=== PATIENT | female | born 1970 | race Caucasian/White ===

== ENCOUNTER 2019-09-29 22:34 | Emergency (ER) | payer BC ==
[2019-09-29] MEDS ORDERED: diphenhydrAMINE 50 MG/ML SDV IVPUSH ONE (22:55)
[2019-09-29] MEDS ORDERED: Ondansetron 4 MG/2 ML SDV IV ONE (22:55)
[2019-09-29] MEDS ORDERED: Lactated Ringers 1,000 ML IV ONE (22:55)
[2019-09-29] MEDS ORDERED: Sodium Chloride 0.9% 10 ML Syringe FLUSH PRN (22:55)
--- NOTE | 2019-09-29 23:03 | EDM.PDOC ---
ED HPI GENERAL MEDICAL PROBLEM - General Stated Complaint: right side pain Time Seen by Provider: 09/29/19 22:57 Source of Information: Reports: Patient History Limitations: Reports: No Limitations - History of Present Illness INITIAL COMMENTS - FREE TEXT/NARRATIVE: Patient comes emergency department today with complaints of a rather sudden onset of right sided lower region abdominal pain about 45 minutes prior to arrival. Earlier today the patient was without any complaints whatsoever. Suddenly about 45 minutes ago she developed one loose stool nausea dry heaving vomiting and right lower quadrant pain. No fever no chills. No chest pain or shortness of breath or difficulty breathing. She has not had any body aches or any other malaise throughout the day. No hematuria dysuria or urinary frequency. She has had a hysterectomy in the past otherwise no abdominal surgeries. RLQ abdominal pain Pain Score (Numeric/FACES): 5 - Related Data Allergies Allergy/AdvReac Type Severity Reaction Status Date / Time No Known Allergies Allergy Verified 09/29/19 23:13 Home Meds: Home Meds Exemestane 25 mg PO DAILY 09/29/19 [History] Cefdinir 300 mg PO BID #14 capsule 09/30/19 [Rx] Ondansetron [Ondansetron ODT] 4 mg PO Q6H PRN #12 tab.rapdis 09/30/19 [Rx] ED ROS GENERAL - Review of Systems Review Of Systems: Comprehensive ROS is negative, except as noted in HPI. ED EXAM, GI/ABD - Physical Exam Exam: See Below Exam Limited By: No Limitations General Appearance: Alert, WD/WN, No Apparent Distress Throat/Mouth: Normal Inspection, Normal Lips, Normal Oropharynx Head: Atraumatic, Normocephalic Neck: Normal Inspection, Supple, Non-Tender, Full Range of Motion Respiratory/Chest: No Respiratory Distress, Lungs Clear, Normal Breath Sounds, No Accessory Muscle Use, Chest Non-Tender Cardiovascular: Normal Peripheral Pulses, Regular Rate, Rhythm GI/Abdominal Exam: Soft, Tender (RLQ without guarding or rebound. Negative McBurney's point psoas obturator heel jar. Pain is really more pelvic in nature than abdominal pain by location some tenderness to the suprapubic region as well. ), Abnormal Bowel Sounds (hypoactive bowel sounds.). No: Distended, Guarding, Rigid, Rebound, Hernia Back Exam: Normal Inspection, Full Range of Motion. No: CVA Tenderness (L), CVA Tenderness (R) Extremities: Normal Inspection, Normal Range of Motion, No Pedal Edema Neurological: Alert, Oriented, Normal Cognition, Normal Gait, No Motor/Sensory Deficits Psychiatric: Normal Affect, Normal Mood Skin Exam: Dry, Intact, Normal Color, Cool, Pallor Course - Vital Signs Last Recorded V/S: Last Vital Signs Temp 35.9 C L 09/29/19 22:34 Pulse 63 09/29/19 22:34 Resp 20 09/29/19 22:34 BP 135/77 09/29/19 22:34 Pulse Ox 100 09/29/19 22:34 - Orders/Labs/Meds Orders: Active Orders 24 hr Category Date Time Status CULTURE URINE [RM] Stat Lab 09/29/19 23:25 Received Sodium Chloride 0.9% [Saline Flush] Med 09/29/19 22:55 Active 10 ml FLUSH ASDIRECTED PRN Peripheral IV Insertion Adult [OM.PC] Stat Oth 09/29/19 22:54 Ordered Medication Orders Sodium Chloride (Saline Flush) 10 ml FLUSH ASDIRECTED PRN PRN Reason: Keep Vein Open Labs: Laboratory Tests 09/29/19 09/29/19 09/29/19 Range/Units 23:09 23:09 23:09 WBC 5.7 (4.0-10.0) x10^3/uL RBC 4.46 (4.00-5.50) x10^6/uL Hgb 13.3 (12.0-16.0) g/dL Hct 38.9 (33.0-47.0) % MCV 87.2 (78.0-93.0) fL MCH 29.8 (26.0-32.0) pg MCHC 34.2 (32.0-36.0) g/dL RDW Coeff of Diya 13.0 (10.0-15.0) % Plt Count 292 (130-400) x10^3/uL Neut % (Auto) 51.8 (50.0-80.0) % Lymph % (Auto) 33.7 (25.0-50.0) % Lake % (Auto) 11.5 H (2.0-11.0) % Eos % (Auto) 2.8 (0.0-4.0) % Baso % (Auto) 0.2 (0.2-1.2) % Sodium 144 (136-145) mmol/L Potassium 3.0 L (3.5-5.1) mmol/L Chloride 105 (98-107) mmol/L Carbon Dioxide 26 (21-32) mmol/L Anion Gap 16.0 (10-20) mmol/L BUN 15 (7-18) mg/dL Creatinine 0.9 (0.55-1.02) mg/dL Est Cr Clr Drug Dosing TNP Estimated GFR (MDRD) > 60 Glucose 106 (74-106) mg/dL Lactic Acid 2.4 H* (0.4-2.0) mmol/L Calcium 9.1 (8.5-10.1) mg/dL Corrected Calcium 9.58 (8.5-10.1) mg/dL Total Bilirubin 0.5 (0.2-1.0) mg/dL AST 17 (15-37) U/L ALT 24 (14-59) U/L Alkaline Phosphatase 92 (46-116) U/L C-Reactive Protein 0.5 (<=0.9) mg/dL Total Protein 7.2 (6.4-8.2) g/dL Albumin 3.4 (3.4-5.0) g/dL Globulin 3.8 Albumin/Globulin Ratio 0.89 Urine Color (YELLOW) Urine Appearance (CLEAR) Urine pH (5.0-8.0) Ur Specific Russell Urine Protein (NEGATIVE) mg/dL Urine Glucose (UA) (NEGATIVE) mg/dL Urine Ketones (NEGATIVE) mg/dL Urine Occult Blood (NEGATIVE) Urine Nitrite (NEGATIVE) Urine Bilirubin (NEGATIVE) Urine Urobilinogen (0.2) EU/dL Ur Leukocyte Esterase (NEGATIVE) Urine RBC (NOT SEEN) /HPF Urine WBC (NOT SEEN) /HPF Ur Squamous Epith Cells (NEGATIVE) /HPF Amorphous Sediment Urine Bacteria (NEGATIVE) /HPF Urine Mucus (NEGATIVE) /LPF Urine HCG, Qual (NEGATIVE) 09/29/19 09/29/19 Range/Units 23:25 23:25 WBC (4.0-10.0) x10^3/uL RBC (4.00-5.50) x10^6/uL Hgb (12.0-16.0) g/dL Hct (33.0-47.0) % MCV (78.0-93.0) fL MCH (26.0-32.0) pg MCHC (32.0-36.0) g/dL RDW Coeff of Diya (10.0-15.0) % Plt Count (130-400) x10^3/uL Neut % (Auto) (50.0-80.0) % Lymph % (Auto) (25.0-50.0) % Lake % (Auto) (2.0-11.0) % Eos % (Auto) (0.0-4.0) % Baso % (Auto) (0.2-1.2) % Sodium (136-145) mmol/L Potassium (3.5-5.1) mmol/L Chloride (98-107) mmol/L Carbon Dioxide (21-32) mmol/L Anion Gap (10-20) mmol/L BUN (7-18) mg/dL Creatinine (0.55-1.02) mg/dL Est Cr Clr Drug Dosing Estimated GFR (MDRD) Glucose (74-106) mg/dL Lactic Acid (0.4-2.0) mmol/L Calcium (8.5-10.1) mg/dL Corrected Calcium (8.5-10.1) mg/dL Total Bilirubin (0.2-1.0) mg/dL AST (15-37) U/L ALT (14-59) U/L Alkaline Phosphatase (46-116) U/L C-Reactive Protein (<=0.9) mg/dL Total Protein (6.4-8.2) g/dL Albumin (3.4-5.0) g/dL Globulin Albumin/Globulin Ratio Urine Color Yellow (YELLOW) Urine Appearance Turbid H (CLEAR) Urine pH 8.5 H (5.0-8.0) Ur Specific Russell 1.025 Urine Protein Negative (NEGATIVE) mg/dL Urine Glucose (UA) Negative (NEGATIVE) mg/dL Urine Ketones Trace H (NEGATIVE) mg/dL Urine Occult Blood Negative (NEGATIVE) Urine Nitrite Negative (NEGATIVE) Urine Bilirubin Negative (NEGATIVE) Urine Urobilinogen 0.2 (0.2) EU/dL Ur Leukocyte Esterase Moderate H (NEGATIVE) Urine RBC 0-5 (NOT SEEN) /HPF Urine WBC 10-20 H (NOT SEEN) /HPF Ur Squamous Epith Cells Moderate H (NEGATIVE) /HPF Amorphous Sediment Many Urine Bacteria Moderate H (NEGATIVE) /HPF Urine Mucus Moderate H (NEGATIVE) /LPF Urine HCG, Qual Negative (NEGATIVE) Meds: Medications Generic Name Dose Route Start Last Admin Trade Name Cristian PRN Reason Stop Dose Admin Sodium Chloride 10 ml 09/29/19 22:55 Saline Flush FLUSH ASDIRECTED PRN Keep Vein Open Discontinued Medications Generic Name Dose Route Start Last Admin Trade Name Cristian PRN Reason Stop Dose Admin Ceftriaxone Sodium 1 gm 09/29/19 23:52 09/30/19 00:06 Rocephin IVPUSH 09/29/19 23:53 1 gm STAT ONE Administration Diphenhydramine HCl 25 mg 09/29/19 22:55 09/29/19 23:13 Benadryl IVPUSH 09/29/19 22:56 25 mg ONETIME ONE Administration Lactated Ringer's 1,000 mls @ 999 mls/hr 09/29/19 22:55 09/29/19 23:10 Ringers, Lactated IV 09/29/19 23:55 999 mls/hr ONETIME ONE Administration Ketorolac Tromethamine 30 mg 09/29/19 23:52 09/29/19 23:58 Toradol IVPUSH 09/29/19 23:53 30 mg ONETIME ONE Administration Ondansetron HCl 4 mg 09/29/19 22:55 09/29/19 23:11 Zofran IV 09/29/19 22:56 4 mg ONETIME ONE Administration - Re-Assessments/Exams Free Text/Narrative Re-Assessment/Exam: 09/29/19 23:05 labs drawn. IV LR 1 liter wide open. Zofran and benadryl for nausea. 09/29/19 23:58 Nausea and vomiting resolved with above. Clearly has a UTI culture pending. Ceftriaxone 1 gram IVP Urine culture pending. Ketorolac for pain. WBC normal as well as her CRP. 09/30/19 00:41 After the above therapy the patient felt much better. Her pain had resolved and also her nausea and vomiting. RE-exam of the abd is a soft none tender abd. She clearly has a UTI no flank tenderness or elevated WBC for a pyelo. Will treat her as such with the nausea and vomiting. I reviewed the results with the patient and her plan of care. She was comfortable with this plan and her questions answered. 09/30/19 00:42 Departure - Departure Time of Disposition: 00:32 Disposition: Home, Self-Care 01 Clinical Impression: UTI (urinary tract infection) Qualifiers: Urinary tract infection type: acute cystitis Hematuria presence: without hematuria Qualified Code(s): N30.00 - Acute cystitis without hematuria Nausea & vomiting Qualifiers: Vomiting type: unspecified Vomiting Intractability: unspecified Qualified Code( s): R11.2 - Nausea with vomiting, unspecified - Discharge Information *PRESCRIPTION DRUG MONITORING PROGRAM REVIEWED*: Not Applicable *COPY OF PRESCRIPTION DRUG MONITORING REPORT IN PATIENT OLVIN: Not Applicable Instructions: Antibiotic Medicine, Adult, [id number], Nausea and Vomiting, Adult, [id number], Urinary Tract Infection, Adult, [id number] Referrals: Becky Henderson MD [Primary Care Provider] - Additional Instructions: Tylenol and or Ibuprofen as needed for pain. Push oral fluids as much as possible over the next few days especially electrolyte containing drinks like Gatorade and or Powerade. Easy simple diet. No dairy for 48 hrs until symptoms of nausea and vomiting have resolved. Zofran 1 tablet every 6 hrs as needed for nausea and vomiting. Starter pack from the ED and RX sent to your pharmacy. Cefdinir, 1 capsule twice daily for the next 7 days. Rx sent to your pharmacy. Return to the ED if new or worsening symptoms. Follow up with PCP in the next 4-6 days if not improving sooner if worse. Sepsis Event Note - Focused Exam Vital Signs: Vital Signs Temp Pulse Resp BP Pulse Ox 09/29/19 22:34 35.9 C L 63 20 135/77 100 Date Exam was Performed: 09/30/19 Time Exam was Performed: 00:32 - My Orders Last 24 Hours: My Active Orders 09/29/19 22:54 Peripheral IV Insertion Adult [OM.PC] Stat 09/29/19 22:55 Sodium Chloride 0.9% [Saline Flush] 10 ml FLUSH ASDIRECTED PRN 09/29/19 23:25 CULTURE URINE [RM] Stat - Assessment/Plan Last 24 Hours: My Active Orders 09/29/19 22:54 Peripheral IV Insertion Adult [OM.PC] Stat 09/29/19 22:55 Sodium Chloride 0.9% [Saline Flush] 10 ml FLUSH ASDIRECTED PRN 09/29/19 23:25 CULTURE URINE [] Stat
[2019-09-29 23:35] LABS: CHLORIDE,CL 105 mmol/L (98-107); SODIUM,NA 144 mmol/L (136-145)
[2019-09-29] MEDS ORDERED: cefTRIAXone 1 GM Vial IVPUSH ONE (23:52)
[2019-09-29] MEDS ORDERED: Ketorolac 30 MG/ML SDV IVPUSH ONE (23:52)
[2019-09-30] MEDS ORDERED: Take Home: Ondansetron 4 MG Tab.DIS, 2 Tab Pack PO ONE (00:36)
== END 2019-09-30 00:45 | disposition home or self-care (01) ==
LOC: VM.ED 22:34
DX: N30.00 Acute cystitis without hematuria (principal); R11.2 Nausea with vomiting, unspecified; Z79.899 Other long term (current) drug therapy
CPT/HCPCS: 80053; 81001; 81025; 83605; 85025; 86140; 87086; 96361; 96374; 96375; 99284; A9270; J0696; J1200; J1885; J2405; J7120